=== PATIENT | male | born 1985 | race Caucasian/White ===

== ENCOUNTER 2023-03-11 06:34 | Day surgery (SDC) | payer OTHER ==
[2023-03-11] VITALS (10 sets, daily range): BP systolic 108–148; BP diastolic 61–92
[~2023-03-11] VITALS: Ht 175.3 cm; Wt 107.3 kg
[~2023-03-11 06:34] MED LIST: ATOR10 PO; BACLOFEN5 M1 PO; FISH OIL PO; NAPR220 PO; Norco 10-325 T1 EACH PO; RAME8 PO
--- NOTE | 2023-03-11 07:29 | NUR ---
Surgical site prepped with 2% Chlorhexidine cloth wipe. Lungs clear T/O to Auscultation. Patient confirms NPO status and agrees with scheduled surgery. Pre-Op teaching done. Pt verbalizes understanding. Patient States Post-Procedure ride home has been arranged.
--- NOTE | 2023-03-11 10:35 | NUR ---
Patient up to Ambulate independently. Gait steady. Discharge instructions reviewed with patient. Patient verbalizes understanding. Copy given to patient to take home. History, Chart, Medications and Allergies reviewed before start of procedure.Lungs clear T/O to Auscultation. Patient confirms NPO status and agrees with scheduled surgery. Patient States Post-Procedure ride home has been arranged. Discharged via wheelchair to private car for ride home.
== END 2023-03-11 10:37 | disposition home or self-care (01) ==
LOC: ORSCMMR 06:34 → ORD 08:00 → ORSCMMR 08:00
PROVIDERS: Surgery
PROC: 0JB70ZZ Excision of Back Subcutaneous Tissue and Fascia, Open Approach (ICD-10-PCS; principal; 2023-03-11 08:00)
PROC: 0JX70ZB Transfer Back Subcutaneous Tissue and Fascia with Skin and Subcutaneous Tissue, Open Approach (ICD-10-PCS; principal; 2023-03-11 08:00)
DX: D17.1 Benign lipomatous neoplasm of skin and subcutaneous tissue of trunk (principal); E66.9 Obesity, unspecified; Z68.35 Body mass index [BMI] 35.0-35.9, adult; Z79.899 Other long term (current) drug therapy
CPT/HCPCS: 88304; A9270; J0690; J1100; J2250; J2405; J2704; J3010; J7120